=== PATIENT | male | born 1955 | race Caucasian/White ===

== ENCOUNTER 2018-01-01 04:56 | Outpatient (CLI) | payer MEDICARE ==
[~2018-01-01 04:56] MED LIST: ASPI-611 PO; ATOR20TA66 PO; CHOL10002 PO; DAPA5TAB PO; LANTUS SQ; MULT-1085 PO; PIOG45TA5 PO; RAMI5CAP PO; SITA100T11 PO
== END 2018-01-01 23:59 | disposition home or self-care (01) ==
LOC: DIABETIC 04:56
PROVIDERS: ATTEND Specialist
DX: E11.65 Type 2 diabetes mellitus with hyperglycemia (principal); I10 Essential (primary) hypertension
CPT/HCPCS: G0108

== ENCOUNTER 2019-09-12 10:27 | Emergency (ER) | payer MEDICARE ==
[~2019-09-12] VITALS: Ht 182.9 cm; Wt 101.8 kg
[~2019-09-12 10:27] MED LIST changes: +CHLO25TA22 PO; +DOCU-148 PO; +GLIM2TAB3 PO; +PANT40TA4 PO; -RAMI5CAP PO; +RAMI5CAP65 PO
[2019-09-12 10:40] VITALS: BP 130/76
[2019-09-12] MEDS ORDERED: SEMA0.25 (11:20)
[2019-09-12] MEDS ORDERED: METF500T20 PO (11:21)
== END 2019-09-12 11:54 | disposition home or self-care (01) ==
LOC: ER 10:28
DX: R20.0 Anesthesia of skin (principal); E11.9 Type 2 diabetes mellitus without complications; Z98.890 Other specified postprocedural states; Z79.899 Other long term (current) drug therapy; Z79.82 Long term (current) use of aspirin; Z79.4 Long term (current) use of insulin
CPT/HCPCS: 99281

== ENCOUNTER 2023-05-12 12:15 | Emergency (ER) | payer MEDICARE, OTHER ==
[~2023-05-12] VITALS: Ht 180.3 cm; Wt 128.6 kg
[~2023-05-12 12:15] MED LIST changes: -CHLO25TA22 PO; -CHOL10002 PO; -DAPA5TAB PO; -DOCU-148 PO; -GLIM2TAB3 PO; +GLIM2TAB6 PO; +METF-900 PO; -PANT40TA4 PO; +SEMA0.25; -SITA100T11 PO
[2023-05-12 12:23] VITALS: BP 128/58; PULSE 54; RESP 18; TEMP 97.5; O2SAT 99
== END 2023-05-12 14:26 | disposition home or self-care (01) ==
LOC: ER 12:15
DX: T85.9XXA Unspecified complication of internal prosthetic device, implant and graft, initial encounter (principal); E11.9 Type 2 diabetes mellitus without complications; M79.601 Pain in right arm; Z88.8 Allergy status to other drugs, medicaments and biological substances; Z79.82 Long term (current) use of aspirin; Z79.899 Other long term (current) drug therapy; Z79.84 Long term (current) use of oral hypoglycemic drugs
CPT/HCPCS: 73060; 99283

== ENCOUNTER 2025-04-10 17:55 | Inpatient (IN) | payer MEDICARE, OTHER ==
[~2025-04-10] VITALS: Ht 182.9 cm; Wt 106.2 kg
[~2025-04-10 17:55] MED LIST changes: -RAMI5CAP65 PO; +RAMI5CAP71 PO
--- NOTE | 2025-04-10 19:46 | ELECTROCARDIOGRAPH REPORT ---
[facility] Test Date: 2025-04-10 Test Time: 19:43:30 Pat Name: LINWOOD HARDIN Department: [facility] Patient ID: [facility]-[id number] Room: Gender: M Enterprise Systems Architect: : 1955 Requested By: ALLI CORDOVA Order Number: [id number] Reading MD: Dr. Jesse Roman Measurements Intervals [place] Rate: 113 P: -28 MO: 154 QRS: -61 QRSD: 114 T: 109 QT: 333 QTc: 457 Interpretive Statements Sinus tachycardia Atrial premature complex Abnormal R-wave progression, late transition LVH with IVCD, LAD and secondary repol abnrm Minimal ST elevation, lateral leads Electronically Signed On 04-10-2025 21:39:[address] Jesse Roman Please click the below link to view image of tracing.
[2025-04-10] MEDS: ondansetron 4mg rapidly disintigrating tab PO ONE (20:11)
[2025-04-10] MEDS: normal saline 1000ml 1,000 ML IV ONE (21:39)
[2025-04-10] MEDS: ondansetron/PF 4mg/2ml inj IV ONE (21:39)
[2025-04-10 21:42] LABS: ETHANOL < 10 MG/DL (<10)
[2025-04-10 23:44] LABS: MEAN PLATELET VOLUME 8.8 FL (7.4-10.4); RED CELL DISTRIBUTION WIDTH 14.8 % (11.5-14.5)
--- NOTE | 2025-04-10 23:45 | Physician Documentation ---
History of Present Illness Chief Complaint: Vomiting Stated Complaint: "STOMACH PAIN" Time Seen by MD: 23:30 OK to notify your PCP?: Yes Primary Medical Doctor: DR. FREDERICK Source: patient, RN/MD, RN notes reviewed, old records Mode of Arrival: POV Exam Limitations: no limitations HPI 69 year old male presents to the emergency room for complaints of abdominal pain that has been present for two days. He states that his pain is constant and is present in all quadrants of his abdomen. He states that he cannot keep food down or drink liquids due to pain. He denies any diarrhea or abdominal surgeries. Medication Reconciliation Allergies: Coded Allergies: nabumetone (Verified Allergy, Unknown, 04/10/25) pravastatin sodium (Verified Allergy, Unknown, 04/10/25) Scheduled Aspirin (Aspir 81), 1 TAB PO DAILY, (Reported) Atorvastatin Calcium (Atorvastatin Calcium), 1 TAB PO HS, (Reported) Glimepiride (Glimepiride), 1 TAB PO DAILY, (Reported) Insulin Glargine,Hum.rec.anlog* (Lantus*), 36 UNITS SQ HS, (Reported) Metformin Hcl* (Metformin ER*), 4 TAB PO HS, (Reported) Pioglitazone HCl (Actos), 1 TAB PO DAILY, (Reported) Ramipril* (Altace*), 1 CAP PO HS, (Reported) Miscellaneous Medications Multivitamin (Multi Vitamin Daily), 1 EACH PO, (Reported) Semaglutide (Ozempic), (Reported) Past Medical History Past Medical History: Diabetes Past Surgical History: orthopedic surgeries Alcohol Use: Rarely Drug Use: none Lives In: Home Review of Systems All Other Systems at this time: Reviewed and Negative ROS As stated above in the HPI, otherwise all systems are reviewed and negative. Physical Exam Vital Signs: RN Vital Signs have been reviewed: Yes, Temperature: 97.8, Source: Temporal, Heart Rate: 100, Respiratory Rate: 18, BP: 134/65, Pulse Oximetry: 97, Weight: 106.250 Oxygen Flow Rate: 0 Pulse Oximetry Reflects: adequate oxygenation Physical Exam General: Patient is moaning i pain, he is uncomfortable appearing. The patient is well developed, well nourished, nontoxic appearing. Skin: [place], warm and dry with no rashes. HEENT: Head was normocephalic and atraumatic. Eyes - pupils equal, round, reactive to light and accommodation. Extraocular movements were intact. C onjunctivae were nonicteric. Ears - bilateral tympanic membranes were normal. The mouth and oropharynx were clear with moist mucous membranes. There were no pharyngeal exudates or erythema. Neck: Supple and nontender. There was no jugular venous distention, lymphadenopathy, thyromegaly or masses. Chest: Clear to auscultation bilaterally without wheezes, rales or rhonchi. No accessory muscle use. No dullness to percussion. Heart: Rate regular and rhythmic. S1, S2. No murmurs. Palpation of the chest wall was normal. No rubs or thrills. Abdomen:Tenderness in all abdominal quadrants. Positive bowel sounds. No guarding or rebound. No hepatosplenomegaly or palpable masses. Extremities: No cyanosis, clubbing or edema. The patient moves all extremit ies. Pulses were equal and symmetric. Neurologic: Cranial nerves II-XII were intact. Sensation was intact to light touch throughout. Motor strength was 5/5 in all four extremities. Deep tendon reflexes were intact in both upper and lower extremities. Psychologic: The patient was oriented to person, place and time. The patient demonstrated appropriate judgement and insight. Progress Progress Note 0115: The case was discussed with the hospitalist who was informed on the patients case and kindly agreed to admission. Results/Orders Results/Orders Orders - JESSE ROMAN MD Liver Panel (04/10/25 19:51) Lipase (04/10/25 19:51) Ethanol (04/10/25 19:51) Drug Screen, Urine (04/10/25 19:51) Urinalysis, Cult If Indicated (04/10/25 19:51) Straight Cath For Urine Sample (04/10/25 19:51) Cbc/Diff (04/10/25 23:22) BMP (04/10/25 20:55) Completed Orders - JESSE ROMAN MD Ondansetron Inj. (Zofran 4mg/2ml Vial) (04/10/25 21:35) Normal Saline 1000ml (0.9% Sodium Chlori (04/10/25 21:35) Medications Received in ER Medications (Trade) Dose Ordered Sig/Dwayne Route PRN Reason Start Time Stop Time Status Last Admin Dose Admin (Zofran ODT tablet) 4 mg ONCE ONCE PO 04/10/25 19:40 04/10/25 19:41 DC 04/10/25 20:11 4 MG (Zofran 4mg/2ml vial) 4 mg ONCE ONCE IV 04/10/25 21:35 04/10/25 21:36 DC 04/10/25 21:39 4 MG Sodium Chloride 1,000 ml @ 1,000 mls/hr ONCE ONCE IV 04/10/25 21:35 04/10/25 22:34 DC 04/10/25 21:39 1,000 MLS/HR Vital Signs 04/10/25 04/10/25 04/10/25 04/10/25 18:03 19:48 20:16 20:18 Temp 97.6 97.8 Pulse 97 110 102 105 Resp 16 22 18 18 B/P (MAP) 123/78 148/88 (108) 118/57 (77) 129/67 (87) Pulse Ox 97 97 98 98 O2 Flow Rate 0 0 0 04/10/25 04/10/25 04/10/25 04/10/25 20:56 21:28 22:22 23:30 Pulse 102 100 100 Resp 18 20 18 B/P (MAP) 137/68 (91) 140/68 (92) 134/65 (88) Pulse Ox 98 97 97 Laboratory Tests Test 04/10/25 20:55 CBC Comment Total Bilirubin 1.0 Direct Bilirubin 0.3 Aspartate Amino Transf (AST/SGOT) 13 Alanine Aminotransferase (ALT/SGPT) 27 Alkaline Phosphatase 72 Total Protein 9.3 H Albumin 5.2 H Globulin 4.1 Albumin/Globulin Ratio 1.3 Lipase 39 Chemistry Comments Ethyl Alcohol Level < 10 EKG/XRAY/CT/US/VASC/MRI EKG : Additional Comment [facility] Test Date: 2025-04-10 Test Time: 19:43:30 Pat Name: LINWOOD HARDIN Department: [facility]- Patient ID: [id number] Room: Gender: M News[employer] Intern: : 1955 Requested By: ALLI CORDOVA Order Number: [id number] Reading MD: Dr. Jesse Roman Measurements Intervals [place] Rate: 113 P: -28 [place]: 154 QRS: -61 QRSD: 114 T: 109 QT: 333 QTc: 457 Interpretive Statements Sinus tachycardia Atrial premature complex Abnormal R-wave progression, late transition LVH with IVCD, LAD and secondary repol abnrm Minimal ST elevation, lateral leads Electronically Signed On 04-10-2025 21:39:[address] Jesse Roman Please click the below link to view image of tracing. EKG Date and Time:04/10/251942 Electronically Signed by: JESSE ROMAN MD Date and Time: 04/10/252138 CT : Impression Exam: CT CT ABDOMEN PELVIS History: ABD PAIN Comparison Study: CT ABDOMEN PELVIS on DOS: 04/03/19 Technique: Multidetector spiral CT of the abdomen was performed from lung bases to pubic symphysis. Imaging was performed without IV contrast. Axial, coronal and sagittal multiplanar reformats were obtained from the axial data set by the technologist. Radiation Dose : 1. Abdomen/Pelvis: CTDIvol mGy, DLP mGy*cm. Findings: Evaluation of solid organs is limited due to lack of intravenous contrast use. Lung Bases: No abnormality demonstrated. Liver: Liver is normal in size. No focal lesions noted. Gallbladder and Biliary Tree: Possible punctate calcified gallstone in the gallbladder which otherwise appears unremarkable. No evidence of biliary ductal dilatation. Spleen: No abnormality demonstrated. Pancreas: No abnormality demonstrated. Adrenal Glands: No abnormality demonstrated. Kidneys: No abnormality demonstrated. Bladder: Considerably distended. No abnormality demonstrated. Bowel: Small hiatal hernia. Stomach is considerably distended with fluid but otherwise unremarkable. No abnormally dilated or thick-walled loops of large or small bowel noted. Appendix appears unremarkable. Ascites: Absent Lymphadenopathy: No evidence of lymphadenopathy. Abdominal Wall and Mesentery: Bilateral fat containing inguinal hernias and very small fat containing umbilical hernia. Vasculature: Unremarkable. Pelvic Organs: Unremarkable. Musculoskeletal: No bony lesions or fracture. Bones appear osteopenic. IMPRESSION: No acute abdominal or pelvic findings. Radiation optimization: All CT scans at this facility use at least one of these dose optimization techniques: automated exposure control mA and/or kV adjustment per patient size (includes targeted exams where dose is matched to clinical indication) or iterative reconstruction. Electronically Signed by:OLI WERNER MD Date & Time: 04/11/25 0105 Departure Disposition: 09 ADMITTED INPATIENT Admitted to Inpatient Unit: yes, to hospitalist Impression: Primary Impression: Chronic renal failure Additional Impressions: Abdominal pain Hypercalcemia DKA (diabetic ketoacidosis) Condition: Fair Referrals: NO PRIMARY CARE PROVIDER (PCP) Critical Care Note Total Time (mins): 30 Critical Care Note The very real possibility of a deterioration of this patient's condition required the highest level of my preparedness for sudden, emergent intervention. I provided critical care services, which included medication orders, frequent reevaluations of the patient's condition and response to treatment, ordering and reviewing test results, and discussing the case with various consultants. Excludes time spent performing separately billable procedures. The critical care time associated with the care of the patient was 30. Signature Scribe Signature: Scribed for Jesse Roman MD by Deloris Tompkins . 04/10/25 23:54 Attestation: The note accurately reflects work and decisions made by me.Jesse Roman MD 04/10/25 23:45 JESSE ROMAN MD Apr 10, 2025 23:45 DELORIS EASTMAN Apr 10, 2025 23:54
[2025-04-10 23:55] LABS: CREATININE 2.59 MG/DL (0.60-1.10); eCRCL 30 ML/MIN; eGFR 25 ML/MIN
[2025-04-11] VITALS (8 sets, daily range): BP systolic 110–132; BP diastolic 39–54; PULSE 60–91; RESP 13–19; TEMP 97.6–98.9; O2SAT 96–98
[2025-04-11 00:04] LABS: TOTAL CARBON DIOXIDE 9.9 MMOL/L (24-32)
[2025-04-11] MEDS: normal saline 1000ML IV soln IV ONE (00:08)
[2025-04-11] MEDS: Insulin Reg/NS 100units/100mL 100 ML IV PRN (00:50)
--- NOTE | 2025-04-11 01:07 | RADIOLOGY REPORT ---
Exam: CT CT ABDOMEN PELVIS History: ABD PAIN Comparison Study: CT ABDOMEN PELVIS on DOS: 04/03/19 Technique: Multidetector spiral CT of the abdomen was performed from lung bases to pubic symphysis. Imaging was performed without IV contrast. Axial, coronal and sagittal multiplanar reformats were ob tained from the axial data set by the technologist. Radiation Dose : 1. Abdomen/Pelvis: CTDIvol mGy, DLP mGy*cm. Findings: Evaluation of solid organs is limited due to lack of intravenous contrast use. Lung Bases: No abnormality demonstrated. Liver: Liver is normal in size. No focal lesions noted. Gallbladder and Biliary Tree: Possible punctate calcified gallstone in the gallbladder which otherwi se appears unremarkable. No evidence of biliary ductal dilatation. Spleen: No abnormality demonstrated. Pancreas: No abnormality demonstrated. Adrenal Glands: No abnormality demonstrated. Kidneys: No abnormality demonstrated. Bladder: Considerably distended. No abnormality demonstrated. Bowel: Small hiatal hernia. Stomach is considerably distended with fluid but otherwise unremarkable. No abnormally dilated or thick-walled loops of large or small bowel noted. Appendix appears unremark able. Ascites: Absent Lymphadenopathy: No evidence of lymphadenopathy. Abdominal Wall and Mesentery: Bilateral fat containing inguinal hernias and very small fat containin g umbilical hernia. Vasculature: Unremarkable. Pelvic Organs: Unremarkable. Musculoskeletal: No bony lesions or fracture. Bones appear osteopenic. IMPRESSION: No acute abdominal or pelvic findings. Radiation optimization: All CT scans at this facility use at least one of these dose optimization jaylin hniques: automated exposure control mA and/or kV adjustment per patient size (includes targeted exam s where dose is matched to clinical indication) or iterative reconstruction.
[2025-04-11] MEDS: sodium bicarbonate 1meq/ml inj 150 ML in sodium chloride 0.45% 1,000 ML IV SCH (01:40)
[2025-04-11 02:34] LABS: LEUKOCYTE ESTERASE ,URINE NEGATIVE (Neg); NITRITES, URINE NEGATIVE (Neg); OCCULT BLOOD,URINE NEGATIVE (Neg)
[2025-04-11 02:41] LABS: UA COLLECTION TYPE CLN CATCH MIDSTREAM
[2025-04-11 02:43] LABS: SQUAMOUS EPITHELIAL CELL,UR FEW /LPF (FEW)
[2025-04-11 02:49] LABS: URINE AMPHETAMINE SCREEN NEGATIVE (Neg); URINE BARBITUATE SCREEN NEGATIVE (Neg); URINE BENZODIAZEPINES SCREEN NEGATIVE (Neg); URINE CANNABINOID SCREEN NEGATIVE (Neg); URINE COCAINE SCREEN NEGATIVE (Neg); URINE METHADONE SCREEN NEGATIVE (Neg); URINE OPIATE SCREEN NEGATIVE (Neg); URINE PHENCYCLIDINE SCREEN NEGATIVE (Neg)
[2025-04-11] MEDS ORDERED: ringers solution, lacted 1,000 ML IV SCH ×2 (03:40)
[2025-04-11] MEDS ORDERED: dextrose 50%-water 50ml dispensing syringe IV PRN (03:40)
[2025-04-11] MEDS ORDERED: sodium phosphate inj. 30 MMOL in dextrose 5%-water 250 ML IV PRN (03:40)
[2025-04-11] MEDS ORDERED: magnesium sulf-water 2g/50mL 50 ML IV PRN ×2 (03:40→04:05)
[2025-04-11] MEDS ORDERED: sodium phosphate inj. 15 MMOL in dextrose 5%-water 250 ML IV PRN (03:40)
[2025-04-11] MEDS ORDERED: potassium Cl 40MEQ/270ML bag 270 ML IV PRN (03:40)
[2025-04-11] MEDS ORDERED: magnesium Cl slow-release 64mg tablet PO PRN (04:05)
[2025-04-11] MEDS ORDERED: magnesium sulf-water 4G/100mL 100 ML IV PRN (04:05)
[2025-04-11] MEDS ORDERED: potassium Cl 40MEQ/1/2NS 520ml 520 ML IV PRN (04:05)
[2025-04-11] MEDS ORDERED: potassium Cl 20 mEq SR tablet PO PRN ×2 (04:05)
[2025-04-11] MEDS: potassium Cl 40MEQ/1/2NS 520ml 520 ML IV PRN (04:34)
[2025-04-11 04:48] LABS: PHOSPHORUS 3.8 MG/DL (2.3-4.5)
[2025-04-11] MEDS: ondansetron/PF 4mg/2ml inj IV PRN (04:51)
[2025-04-11] MEDS: potassium Cl 40MEQ/1/2NS 520ml 520 ML IV ONE (04:52)
[2025-04-11 05:19] LABS: ABG BASE EXCESS -1.5 mmol/L (-2.0-3.0); ABG HCO3 19.9 mmol/L (21.0-28.0); ABG OXYGEN SATURATION 98.1 % (94.0-98.0); ABG PCO2 (T) 26.4 mmHg (35.0-48.0); ABG PH (T) 7.497 (7.350-7.450); ABG PO2 (T) 100.4 mmHg (83.0-108.0); ALLEN'S TEST POSITIVE; FCOHb 0.5 % (0.5-1.5); FHHb 1.9 % (0.0-5.0); FIO2 21.0 mmHg/%; FMetHb 0.3 % (0.0-1.5); FO2Hb 97.3 % (94.0-98.0); MODE ROOM AIR; PATIENT TEMPERATURE 37.6; TOTAL HEMOGLOBIN 14.9 G/dl (13.5-17.5)
--- NOTE | 2025-04-11 05:34 | HISTORY AND PHYSICAL-Residence ---
History & Physical Providers to CC Resident Creating Document: LUDIN BRIONES, RES CC: GUNNER SHERMAN MD ~ History of Present Illness Primary Medical Doctor: DR. FREDERICK Reason for Admit\Complaint: Abdominal pain, nausea and vomitings History of Present Illness A 69 yr-old male with past medical history of diabetes mellitus type 2 (insulin dependent) presented to the ED with abdominal pain since present in the umbilical region, sharp in character, 10/10 in severity, with no radiation. No aggravating or relieving factors patient endorses nausea and vomitings. Patient states that he had multiple episodes of vomitings which later turned out to be bilious. Patient has lost about 15 LV is in 1.5 days. Patient denies loose stools, burning micturition. Patient also endorses that he has not taken insulin yesterday. Allergies: Coded Allergies: nabumetone (Verified Allergy, Unknown, 04/10/25) pravastatin sodium (Verified Allergy, Unknown, 04/10/25) Home Medications Home Medications Active Reported Metformin ER* (Metformin HCl) 500 Mg Tab.sr.24h 4 Tab PO HS Ozempic (Semaglutide) 0.25 Mg/0.2 Ml Pen.injctr Glimepiride 2 Mg Tablet 1 Tab PO DAILY 30 Days Lantus* (Insulin Glargine) 100 Unit/1 Ml Vial 36 Units SQ HS Atorvastatin Calcium 20 Mg Tablet 1 Tab PO HS Multi Vitamin Daily (Multivitamin) 1 Each Tablet 1 Each PO Aspir 81 (Aspirin) 81 Mg Tablet.dr 1 Tab PO DAILY Altace* (Ramipril) 5 Mg Capsule 1 Cap PO HS Actos (Pioglitazone HCl) 45 Mg Tablet 1 Tab PO DAILY Past Medical History Past Medical History Diabetes mellitus type 2 Sleep apnea (noncompliant with CPAP) Past Surgical History Surgical History Comment Left knee repair Past Social History Social History Comment Does not smoke cigarettes, alcohol, marijuana or illicit drugs PCP: Sabino rojas Lives at home with family Alcohol Use: Rarely Drug Use: None Lives In: Home ROS ROS All other systems reviewed in full and negative except for the pertinent positives mentioned in the HPI Exam Vitals: Vital Signs Date Time Temp Pulse Resp B/P (MAP) Pulse Ox O2 Delivery O2 Flow Rate FiO2 04/11/25 03:50 96 04/11/25 01:31 18 128/80 (96) 98 04/10/25 20:18 0 04/10/25 19:48 97.8 General: General: Morbidly obese male, Alert, awake, oriented, not in acute distress HEENT: PERRLA, no icterus, pallor, lymphadenopathy, carotid bruit Respiratory system: Bilateral vesicular breath sounds heard, no adventitious breath sounds CVS: S1-S2 heard, no murmurs/rubs/gallop GI: Tenderness in the umbilical region, Soft, no organomegaly, no guarding/rigidity, bowel sounds present Neuro: No focal neurological deficits present Extremities: No edema cyanosis clubbing/deformities Skin: Warm and dry Diagnostic Data Last Recorded Lab Results: 04/10/25205404/11/25 041 Advance Care Planning Advanced Care plannin - 30 Minutes (I spent 20 minutes discussing various resuscitative measures and the patient decided to be full code) Additional Plan Assessment: A 69-year-old male with past medical history of DM type 2, insulin dependent presented to the ED in view of abdominal pain nausea and vomitings. In the ED, patient was found to have elevated blood sugars and was with metabolic acidosis s. Patient is found to have positive ketones in the urine. Plan: DKA Metabolic acidosis Lactic acidosis A1c: 6.2, controlled Unknown reason for DKA UA positive for ketones Elevated blood sugars, U tox and ethyl alcohol negative Started on IV bicarb in half-normal saline DKA protocol Continue to monitor anion gap Start D5 half-normal saline with a blood glucose falls below 200 ABG results have been skewed as ABG was taken long hours after treatment has been initiated Switch to hyper/hypoglycemia protocol once anion gap closes Prerenal DENIZ probably secondary to renal tubular stasis Elevated BUN and creatinine Continue IV fluids Continue to monitor BMP Leukocytosis CT abdomen pelvis: Normal Follow up with procalcitonin Did not start on any antibiotics, re-evaluate in a.m. Hypercalcemia Most likely secondary to hemoconcentration Continue IV fluid resuscitation continue to monitor HTN Continue ramipril 5 mg HLD Follow up with lipid panel Continue atorvastatin 20 mg once daily Patient is on aspirin at home, unknown past medical history, re-evaluate Code status: Full code Diet: NPO Anticoagulation: Aspirin Disposition: Admit to PCU, continue to monitor blood sugars Ludin Briones MD Internal Medicine, PGY 2 Pt was seen and discussed with the resident team pt in DKA Improved Taking iv insulin at this time ]He is awake and alert and conversant Will continue insulin drip for Gap closure and acidosis resolution Date of Service: Apr 11, 2025 Billing Provider: GUNNER SHERMAN MD, SIVA, RES Apr 11, 2025 05:33 GUNNER SHERMAN MD Apr 11, 2025 06:35
[2025-04-11 05:36] LABS: CREATININE 2.10 MG/DL (0.60-1.10); TOTAL CARBON DIOXIDE 18.0 MMOL/L (24-32); eCRCL 36 ML/MIN; eGFR 31 ML/MIN
[2025-04-11] MEDS: HYDROcodone/acetaminophen 5mg/325mg tablet PO PRN (06:58)
[2025-04-11] MEDS: Insulin Reg/NS 100units/100mL 100 ML IV SCH (07:53)
[2025-04-11] MEDS ORDERED: non-formulary drug (Aspirin (Aspir 81) 1 TAB) PO SCH (08:00)
[2025-04-11] MEDS: K and/or MAG REPLACEMENT MC SCH (08:00)
[2025-04-11] MEDS: docusate sod 100mg capsule PO SCH (08:16)
[2025-04-11] MEDS: heparin, porcine 5000 units/ml vial SQ SCH (08:16)
[2025-04-11] MEDS: aspirin 81mg, enteric-coated 1 TAB TABLET.DR PO SCH (08:16)
[2025-04-11 08:49] LABS: MEAN PLATELET VOLUME 8.3 FL (7.4-10.4); RED CELL DISTRIBUTION WIDTH 14.2 % (11.5-14.5)
[2025-04-11 09:03] LABS: CREATININE 1.96 MG/DL (0.60-1.10); TOTAL CARBON DIOXIDE 24.2 MMOL/L (24-32); eCRCL 39 ML/MIN; eGFR 34 ML/MIN
[2025-04-11] MEDS: insulin glargine (Lantus) pen - multi-dose SQ ONE (10:27)
[2025-04-11] MEDS: CefTRIAXone/D5W-Rocephin 1gm 50 ML IV SCH (10:28)
[2025-04-11] MEDS: metoclopramide 5 mg/ml inj IV PRN (12:38)
[2025-04-11] MEDS: INSULIN LISPRO 100 UNIT/ML INSULN.PEN MULTI-DOSE SQ SCH (12:40)
[2025-04-11] MEDS: HYDROmorphone inj. 0.5 MG/0.5 ML DISP.SYRIN IV PRN (12:58)
[2025-04-11 13:13] LABS: CREATININE 1.61 MG/DL (0.60-1.10); PHOSPHORUS 3.4 MG/DL (2.3-4.5); TOTAL CARBON DIOXIDE 24.5 MMOL/L (24-32); eCRCL 48 ML/MIN; eGFR 43 ML/MIN
[2025-04-11] MEDS ORDERED: metoclopramide 5 mg/ml inj IV SCH (14:00)
--- NOTE | 2025-04-11 14:41 | PROGRESS NOTE- Residence ---
Progress Note - Resident Providers to CC Resident Creating Document: ERIC BENEDICT, AMADEO ~ Antibiotic Timeout Antibiotic Ordered?: No Subjective Patient was seen and examined at bedside. He still reports abdominal pain, unable to pass gas and has persistent hiccups. Reglan 10 mg IV three times daily started. Nonetheless his A1C is 6.2, patient was presented with DKA. HCO3 is 24.5, Anion Gap is closed, Insulin drip discontinued. Fluid switched to half NS. He is compliant with his insulin; adminiters 18-20 units of Lantus at night. If remains stable, he can be DC'd home tomorrow. Objective Vital Signs Date Time Temp Pulse Resp B/P (MAP) Pulse Ox O2 Delivery O2 Flow Rate FiO2 04/11/25 12:58 15 04/11/25 11:00 97.9 83 116/49 (71) 98 Room Air 04/11/25 03:30 0.0 General: Obese male, Awake and Alert, no acute distress. HEENT: Conjunctiva pink, Sclera clear, Mucus Membranes moist. Neck: Supple without masses and tenderness. Resp: Unlabored. Lungs clear to auscultation bilaterally. Heart: Regular Rate and rhythm, normal S1 and S2 without murmur, rub or gallop. Abdomen: mild-moderate periumblical tenderness. bowel sounds sluggish. Extremities: No cyanosis,clubbing or edema. Skin: Warm and Dry. Result Diagram: 04/11/25 0730 04/11/25 1223 Advance Care Planning Advanced Care plannin - 30 Minutes Assessment Assessment A 69-year-old male with past medical history of DM type 2, insulin dependent presented to the ED in view of abdominal pain nausea and vomitings. In the ED, patient was found to have elevated blood sugars and was with metabolic acidosis s. Patient is found to have positive ketones in the urine. Nonetheless his A1C is 6.2, patient was presented with DKA. HCO3 is 24.5, Anion Gap is closed, Insulin drip discontinued. Fluid switched to half NS. He is compliant with his insulin; adminiters 18-20 units of Lantus at night. Plan Plan Diabetic ketoacidosis/DKA, Resolved High anion gap Metabolic acidosis, Resolved Lactic acidosis, Resolved A1c: 6.2, controlled Unknown reason for DKA UA positive for ketones Elevated blood sugars, U tox and ethyl alcohol negative Started on IV bicarb in half-normal saline DKA protocol Continue to monitor anion gap Start D5 half-normal saline with a blood glucose falls below 200 ABG results have been skewed as ABG was taken long hours after treatment has been initiated Switch to hyper/hypoglycemia protocol once anion gap closes April 11, 2025: DKA resolved, AG closed. Insulin drip DC'd, Hyperglycemia/hypoglycemia protocol in place. HCO3 drip DC'd, half NS 100 ml/hr Able to tolerate oral intake. Still c/o abdominal pain, despite negative CT. Monitor closely. Prerenal DENIZ probably secondary to renal tubular stasis - improving creatinine trended down; from 2.59 to 1.61 Continue IV fluids Continue to monitor BMP Leukocytosis CT abdomen pelvis: Normal Follow up with procalcitonin Did not start on any antibiotics, re-evaluate in a.m. Hypercalcemia Most likely secondary to hemoconcentration Continue IV fluid resuscitation continue to monitor HTN Continue ramipril 5 mg HLD Follow up with lipid panel Continue atorvastatin 20 mg once daily Code Status: Full Code DVT prophylaxis: Heparin SQ Eric Benedict Internal Medicine Resident Date of Service: Apr 11, 2025 Billing Provider: GRIFFIN GAYTAN MD,ERIC, RES Apr 11, 2025 14:41
[2025-04-11] MEDS: mag hydrox/Alum hydrox/simeth 30ml oral suspension PO PRN (19:17)
[2025-04-12] VITALS (8 sets, daily range): BP systolic 108–141; BP diastolic 43–59; PULSE 56–67; RESP 13–18; TEMP 97.7–99; O2SAT 96–98
[2025-04-12 06:13] LABS: MEAN PLATELET VOLUME 8.2 FL (7.4-10.4); RED CELL DISTRIBUTION WIDTH 14.1 % (11.5-14.5)
[2025-04-12 06:49] LABS: CHOL/HDL RATIO 1.8 (0.00-4.99); CREATININE 1.08 MG/DL (0.60-1.10); LDL CHOLESTEROL 27 MG/DL (50-100); TOTAL CARBON DIOXIDE 24.2 MMOL/L (24-32); eCRCL 71 ML/MIN; eGFR 68 ML/MIN
[2025-04-12] MEDS: magnesium hydroxide 30ml (MOM) UD suspension PO PRN (07:32)
[2025-04-12] MEDS: metoclopramide 5 mg/ml inj IV SCH (13:47)
--- NOTE | 2025-04-12 15:19 | PROGRESS NOTE- Residence ---
Progress Note - Resident Providers to CC Resident Creating Document: ESSIE LEONE RES ~ Antibiotic Timeout Antibiotic Ordered?: No Subjective Patient was seen and examined at bedside. Continues to have abdominal pain and persistent hiccups. He did pass bowel gastritis. Thioridazone ordered for hiccups. AFib abdominal pain does not improve, we will order CT with oral and IV contrast. Objective Vital Signs Date Time Temp Pulse Resp B/P (MAP) Pulse Ox O2 Delivery O2 Flow Rate FiO2 04/12/25 14:47 19 04/12/25 11:00 97.9 62 117/48 (71) 96 Room Air 04/11/25 03:30 0.0 Result Diagram: 04/12/2539 04/12/25 0539 General: Obese male, Awake and Alert, no acute distress. HEENT: Conjunctiva pink, Sclera clear, Mucus Membranes moist. Neck: Supple without masses and tenderness. Resp: Unlabored. Lungs clear to auscultation bilaterally. Heart: Regular Rate and rhythm, normal S1 and S2 without murmur, rub or gallop. Abdomen: mild-moderate periumblical tenderness. bowel sounds sluggish. Extremities: No cyanosis,clubbing or edema. Skin: Warm and Dry. Assessment Assessment A 69-year-old male with past medical history of DM type 2, insulin dependent presented to the ED in view of abdominal pain nausea and vomitings. Patient was found to be in DKA, now resolved, A1c 6.2, on half NS in Lantus 15 units. Has continuous abdominal pain with hiccups, unknown cause. CT abdomen did not show any significant findings. Started chlorpromazine 25 mg t.i.d. for hiccups and Protonix [address] with oral and IV contrast. Plan Plan Diabetic ketoacidosis/DKA, Resolved High anion gap Metabolic acidosis, Resolved Lactic acidosis, Resolved A1c: 6.2, controlled Unknown reason for DKA UA positive for ketones Elevated blood sugars, U tox and ethyl alcohol negative Started on IV bicarb in half-normal saline DKA protocol Continue to monitor anion gap Start D5 half-normal saline with a blood glucose falls below 200 ABG results have been skewed as ABG was taken long hours after treatment has been initiated April 11, 2025: DKA resolved, AG closed. Insulin drip DC'd, Hyperglycemia/hypoglycemia protocol in place. HCO3 drip DC'd, half NS 100 ml/hr Able to tolerate oral intake. Still c/o abdominal pain, despite negative CT. Monitor closely. April 12, 2025 Glucose in the normal range Continued half NS 100 mL/hour Hyperglycemia hypoglycemic protocol in place Unresolving abdominal pain Also has a associated hiccups Cause unknown No improvement with Reglan. Thyioridazone 25 mg t.i.d. ordered Also started pantoprazole 40 mg IV, as patient has a history of GERD CT abdomen did not show significant findings Plan is to order CT abdomen with the oral and IV contrast Prerenal DENIZ probably secondary to renal tubular stasis - improving creatinine trended down; from 2.59 to 1.61 Continue IV fluids Continue to monitor BMP Leukocytosis CT abdomen pelvis: Normal Follow up with procalcitonin Did not start on any antibiotics, re-evaluate in a.m. 04/12/2025-WBC trending down Hypercalcemia-resolved Most likely secondary to hemoconcentration Continue IV fluid resuscitation continue to monitor HTN Continue ramipril 5 mg HLD Follow up with lipid panel Continue atorvastatin 20 mg once daily Code Status: Full Code DVT prophylaxis: Heparin SQ [facility] Resident Date of Service: Apr 12, 2025 Billing Provider: GRIFFIN GAYTAN MD Common Visit Codes: [id number] INP/OBS CARE(HIGH) ESSIE LEONE, RES Apr 12, 2025 15:19 GRIFFIN GAYTAN MD Apr 12, 2025 21:43
--- NOTE | 2025-04-12 18:57 | CARDIOLOGY REPORT ---
APPROVED REPORT EXAM: Comprehensive 2D, Doppler, and color-flow Echocardiogram. Patient Location: [address] Blood Pressure: 120/54 mmHg Heart Rate: 62 bpm Rhythm: Sinus with frequent PAC's Indications Coronary Artery Disease Stomach Pain Diabetes Melltius II Drop Wire Aliner: None Previous echo: None 2D Dimensions RVDd 4.0 cm LA Diam4.9 cm RA Minor4.6 cmLVOT Diameter 2.27 (1.8-2.4cm) Ao Asc Diam.3.81 cmCO 8.9 L/min M-Mode Dimensions RVDd 3.62 (2.1-3.2cm) IVSd 1.23 (0.7-1.1cm) LVDd 5.76 (4.0-5.6cm) Aortic Root 3.80 (2.2-3.7cm) PWd 1.26 (0.7-1.1cm) Aortic Cusp Exc 2.11 (1.5-2.0cm) IVSs 1.55 cm LVDs 4.13 (2.0-3.8cm) FS (%) 30 % PWs 1.72 cm ESV(Teich) 68.8 ml LVEF(%) 57 (>50%) Aortic Valve AoV Peak Arturo. 190.9 cm/s AoV VTI 37.4 cm AO Peak GR. 14.6 mmHg AO Mean GR. 8 mmHg LVOT VTI 24.96 cm LVOT Peak Arturo. 124.5 cm/s NANCY(VTI)/BSA 2.69 cm2/m2 NANCY (VTI) 2.69 cm2 Mitral Valve MV E Velocity 99.4 cm/s MV Peak Gr. 6 mmHg MV DECEL TIME 244 ms MV A Velocity 69.8 cm/s MV Mean Gr. 2 mmHg MV PHT 72 ms E/A Ratio 1.4 MVA (PHT) 3.06 cm2 MV XOdb225.1 cm/sMV VMean58.4 cm/s MVA VTI3.10 cm2MV VTI32.5 cm Tricuspid Valve TR P. Velocity 239 cm/s RAP ESTIMATE 10 mmHg TR Peak Gr. 23 mmHg RVSP 33 mmHg LEFT VENTRICLE The LV is dilated in size with mildly reduced function. Apical septum and septal segments appear hypo kinetic. Mild concentric hypertrophy. Overall LVEF is 50-55%. RIGHT VENTRICLE Right ventricle is moderately dilated with reduced function. Estimated PA systolic pressure is 33 mmH g. ATRIA Left atrium is moderately dilated. Right atrium appears to be moderately dilated. AORTIC VALVE Trileaflet AV appears sclerotic without stenosis. Trace insufficiency. MITRAL VALVE Mild Moderate MV annular calcification without stenosis. Mild regurgitation. TRICUSPID VALVE TV appears structurally normal with mild regurgitation. PULMONIC VALVE Grossly normal PV without stenosis, physiologic insufficiency. GREAT VESSELS Aortic root is dilated at 3.8 cm. Ascending aorta is dilated at 3.81 cm. IVC is not well v isualized. PERICARDIUM Normal pericardium. Anterior fat pad is present. No pericardial effusion seen. Other Information Study Quality: Fair. Patient has had hiccups for the last 24 hours. Conclusion The LV is dilated in size with mildly reduced function. Apical septum and septal segments appear hypo kinetic. Mild concentric hypertrophy. Overall LVEF is 50-55%. Right ventricle is moderately dilated with reduced function. Estimated PA systolic pressure is 33 mmH g. Left atrium is moderately dilated. Right atrium appears to be moderately dilated. Trileaflet AV appears sclerotic without stenosis. Trace insufficiency. Mild Moderate MV annular calcification without stenosis. Mild regurgitation. TV appears structurally normal with mild regurgitation. Aortic root is dilated at 3.8 cm. Ascending aorta is dilated at 3.81 cm. Normal pericardium. Anterior fat pad is present. No pericardial effusion seen.
[2025-04-12] MEDS: insulin glargine (Lantus) pen - multi-dose SQ SCH (21:48)
[2025-04-13 02:00] VITALS: BP 130/51; PULSE 63; RESP 20; TEMP 98.5; O2SAT 96
[2025-04-13 06:11] LABS: MEAN PLATELET VOLUME 8.2 FL (7.4-10.4); RED CELL DISTRIBUTION WIDTH 14.0 % (11.5-14.5)
[2025-04-13 06:22] LABS: CREATININE 0.84 MG/DL (0.60-1.10); TOTAL CARBON DIOXIDE 25.9 MMOL/L (24-32); eCRCL 91 ML/MIN; eGFR > 90 ML/MIN
[2025-04-13 07:00] VITALS: BP 121/51; PULSE 57; RESP 20; TEMP 98.5; O2SAT 94
[2025-04-13 08:17] VITALS: RESP 18
[2025-04-13] MEDS ORDERED: magnesium citrate 296ml oral solution PO ONE (10:20)
[2025-04-13] MEDS ORDERED: PANT40SU2 PO (10:41)
[2025-04-13] MEDS ORDERED: LANTUS SQ (10:41)
[2025-04-13] MEDS ORDERED: METO5TAB85 PO (10:41)
[2025-04-13] MEDS ORDERED: HYDR-3973 PO (16:09)
--- NOTE | 2025-04-13 16:43 | DISCHARGE SUMMARY-Residence ---
Discharge Summary Providers to CC Resident Creating Document: SIERRA ALASELIAN, RES ~ Discharge Summary Admission Diagnosis: DKA Hospital Course DATE OF ADMISSION: 04/11/2025 DATE OF DISCHARGE: 04/13/2025 Discharge Diagnosis\Comment: Diabetic ketoacidosis/DKA-Resolved High anion gap Metabolic acidosis-Resolved Lactic acidosis, Resolved Abdominal pain-result Prerenal DENIZ probably secondary to renal tubular stasis - improving Leukocytosis Hypercalcemia-resolved HTN HLD Operations\Procedures: None Consultants: None Complications: None Condition on DC: Stable New Medications: Hydrocodone Bit/Acetaminophen (Hydrocodone-Apap 10-325 Tablet) 10mg/325mg Tablet 1 TAB PO QID PRN PRN for pain for 5 Days, #20 TAB Metoclopramide HCl (Reglan) 5 Mg Tablet 1 TAB PO Q6H PRN for nausea/vomiting for 7 Days, #28 TAB 0 Refills before food Pantoprazole Sodium (Protonix) 40 Mg Suspdr.pkt 1 PKT PO DAILY for 30 Days, #30 PKT 0 Refills Changed Medications: Insulin Glargine,Hum.rec.anlog* (Lantus*) 100 Unit/1 Ml Vial 12 UNITS SQ HS for 30 Days, #1 VIAL (Changed from: 36 UNITS) administer 12 units at bedtime Continued Medications: Aspirin (Aspir 81) 81 Mg Tablet.dr 1 TAB PO DAILY, TAB Atorvastatin Calcium (Atorvastatin Calcium) 20 Mg Tablet 1 TAB PO HS, TAB Glimepiride (Glimepiride) 2 Mg Tablet 1 TAB PO DAILY for 30 Days, #30 TAB Metformin Hcl* (Metformin ER*) 500 Mg Tab.sr.24h 4 TAB PO HS, TAB Multivitamin (Multi Vitamin Daily) 1 Each Tablet 1 EACH PO, TAB Pioglitazone HCl (Actos) 45 Mg Tablet 1 TAB PO DAILY, TAB Ramipril* (Altace*) 5 Mg Capsule 1 CAP PO HS, CAP Semaglutide (Ozempic) 0.25 Mg/0.2 Ml Pen.injctr Discharge Summary: HPI: A 69 yr-old male with past medical history of diabetes mellitus type 2 (insulin dependent) presented to the ED with abdominal pain since present in the umbilical region, sharp in character, 10/10 in severity, with no radiation. No aggravating or relieving factors patient endorses nausea and vomitings. Patient states that he had multiple episodes of vomitings which later turned out to be bilious. Patient has lost about 15 LV is in 1.5 days. Patient denies loose stools, burning micturition. Patient also endorses that he has not taken insulin yesterday. Hospital course: 69-year-old male patient came to the hospital with chief complaint of abdominal pain, nausea and vomiting. The patient was admitted with diagnosis of diabetic ketoacidosis. Abdomen/pelvis CT scan was obtained which showed no acute abdominal findings. Regarding his findings in his lab work with metabolic acidosis, lactic acidosis the patient was started on diabetic ketoacidosis protocol based on insulin drip, later on transitioned to hyperglycemi a/hypoglycemia protocol in place based on glargine and sliding scale lispro. The patient glucose levels and metabolic acidosis improved. At the same time the patient was found with the acute kidney injury likely secondary prerenal which improved with IV fluid resuscitation. The patient reported persistent abdominal pain and nausea for which the patient was started on metoclopramide, the patient reported significant improvement of symptoms, on 04/13/2025 the patient reports resolution of symptoms, eager to be discharged home. The patient remained hemodynamically asymptomatic. Physical therapy evaluated the patient, the patient is home independent. The patient will be discharged home. Discharge course: The patient remained hemodynamically stable. The patient will be discharged with the following instructions: Call 911 or come back to the Emergency department if severe nausea, abdominal pain, shortness of breath, chest pain, palpitations, fever is evidenced. Follow up with your primary care physician for 2 weeks. We are reducing your dose on lantus to 12 units at bedtime. Take [place] 10 mg/325 mg every 6 hours as needed for pain. Continue pantoprazole one tablet of 40 mg daily. Continue home medications: Aspirin one tablet of 81 mg daily. Atorvastatin one tablet of 20 mg at bedtime. Glimepiride one tablet of 10 mg daily. Ramipril one tablet of 5 mg daily. Physical exam: General: Well alert, well oriented, not confused, not agitated, not in acute di stress, well cooperated during the physical. HEENT: Conjunctive are pink, sclerae clear, no icterus, pupil is equal in both sides, reactive to light, no ear discharge, no pharyngeal erythema or an edema. Neck: Supple, no JVD, no lymphadenopathy and thyromegaly. Chest: Equal air entry on both lungs, no additional sounds no rhonchi no wheezing at the moment. Cardiovascular: S1-S2 regular sinus rhythm and, regular rate, no gallops, no rubs, no murmurs Abdomen: No visible peristalsis, Bowel sounds present on auscultation, soft, nontender, no guarding, no rigidity Extremities: No obvious deformities, no pitting edema bilaterally, capillary refill intact, peripheral pulsations are intact on both sides Central Nervous System: No focal neurological deficits, no motor or sensory weakness in all 4 extremities, could move all 4 extremities, 2+ deep tendon reflexes, negative Babinski. Musculoskeletal: No joint swelling, deformities, inflammations, and no scoliosis and back tenderness Skin: Warm and dry. Vital Signs Date Time Temp Pulse Resp B/P (MAP) Pulse Ox O2 Delivery O2 Flow Rate FiO2 04/13/25 08:17 18 04/13/25 08:00 Room Air 04/13/25 07:00 98.5 57 121/51 (74) 94 04/11/25 03:30 0.0 Laboratory Tests Test 04/11/25 21:27 04/12/25 00:26 04/12/25 05:39 04/12/25 07:01 Glucometer 123 mg/dl 116 mg/dl 128 mg/dl White Blood Count 14.6 X10'3 Red Blood Count 3.95 X10'6 Hemoglobin 13.1 g/dl Hematocrit 38.2 % Mean Corpuscular Volume 96.6 FL Mean Corpuscular Hemoglobin 33.2 PG Mean Corpuscular Hemoglobin Concent 34.3 g/dL Red Cell Distribution Width 14.1 % Platelet Count 250 X10'3 Mean Platelet Volume 8.2 FL Neutrophils (%) (Auto) 77.6 % Lymphocytes (%) (Auto) 12.7 % Monocytes (%) (Auto) 9.3 % Eosinophils (%) (Auto) 0.1 % Basophils (%) (Auto) 0.3 % Neutrophils # (Auto) 11.3 X10'3 Lymphocytes # (Auto) 1.9 X10'3 Monocytes # (Auto) 1.4 X10'3 Eosinophils # (Auto) 0.0 X10'3 Basophils # (Auto) 0.1 X10'3 CBC Comment Sodium Level 138 MMOL/L Potassium Level 4.0 MMOL/L Chloride Level 103 MMOL/L Carbon Dioxide Level 24.2 MMOL/L Anion Gap 11 Blood Urea Nitrogen 24 MG/DL Creatinine 1.08 MG/DL Estimated GFR/1.73 m2 68 ML/MIN BUN/Creatinine Ratio 22.2 Glucose Level 129 MG/DL Calcium Level 8.3 MG/DL Albumin 3.4 G/DL Triglycerides Level 93 MG/DL Cholesterol Level 92 MG/DL LDL Cholesterol 27 MG/DL HDL Cholesterol 52 MG/DL Cholesterol/HDL Ratio 1.8 Chemistry Comments Test 04/12/25 11:37 04/12/25 17:02 04/12/25 21:43 04/13/25 05:34 Glucometer 129 mg/dl 108 mg/dl 96 mg/dl White Blood Count 7.9 X10'3 Red Blood Count 3.93 X10'6 Hemoglobin 13.2 g/dl Hematocrit 38.1 % Mean Corpuscular Volume 97.1 FL Mean Corpuscular Hemoglobin 33.5 PG Mean Corpuscular Hemoglobin Concent 34.6 g/dL Red Cell Distribution Width 14.0 % Platelet Count 224 X10'3 Mean Platelet Volume 8.2 FL Neutrophils (%) (Auto) 65.1 % Lymphocytes (%) (Auto) 21.9 % Monocytes (%) (Auto) 12.1 % Eosinophils (%) (Auto) 0.6 % Basophils (%) (Auto) 0.3 % Neutrophils # (Auto) 5.2 X10'3 Lymphocytes # (Auto) 1.7 X10'3 Monocytes # (Auto) 1.0 X10'3 Eosinophils # (Auto) 0.0 X10'3 Basophils # (Auto) 0.0 X10'3 CBC Comment Sodium Level 137 MMOL/L Potassium Level 3.6 MMOL/L Chloride Level 103 MMOL/L Carbon Dioxide Level 25.9 MMOL/L Anion Gap 8 Blood Urea Nitrogen 13 MG/DL Creatinine 0.84 MG/DL Estimated GFR/1.73 m2 > 90 ML/MIN BUN/Creatinine Ratio 15.5 Glucose Level 65 MG/DL Calcium Level 8.1 MG/DL Albumin 2.9 G/DL Chemistry Comments Test 04/13/25 08:23 04/13/25 08:51 Glucometer 60 mg/dl 105 mg/dl Imaging: Echocardiogram: The LV is dilated in size with mildly reduced function. Apical septum and septal segments appear hypokinetic. Mild concentric hypertrophy. Overall LVEF is 50-55%. Right ventricle is moderately dilated with reduced function. Estimated PA systolic pressure is 33 mmHg. Left atrium is moderately dilated. Right atrium appears to be moderately dilated. Trileaflet AV appears sclerotic without stenosis. Trace insufficiency. Mild Moderate MV annular calcification without stenosis. Mild regurgitation. TV appears structurally normal with mild regurgitation. Aortic root is dilated at 3.8 cm. Ascending aorta is dilated at 3.81 cm. Normal pericardium. Anterior fat pad is present. No pericardial effusion seen. Abdominal/pelvis CT scan: No acute abdominal or pelvic findings. *Problems/Diagnosis: (1) DKA (diabetic ketoacidosis) Status: Resolved (2) High anion gap metabolic acidosis Status: Resolved (3) Acute renal failure Status: Resolved Total Time Spent on D/C: > 30 Minutes Addendum pt had persistent abd pain and hiccups during his stay that resolved by discharge; possibly attributed to increase in his cialis dose as per pt report after dose increased pt had severe acid reflux Date of Service: Apr 13, 2025 Billing Provider: GRIFFIN GAYTAN MD Common Visit Codes: 00787-OLR/OBS DISCH DAY >30min Problem Qualifiers (1) DKA (diabetic ketoacidosis): Diabetes mellitus type: type 2 ELINA MILES, RES Apr 13, 2025 16:42 GRIFFIN GAYTAN MD Apr 13, 2025 20:33
[2025-04-13] MEDS ORDERED: insulin glargine (Lantus) pen - multi-dose SQ SCH (21:00)
[2025-04-14] MEDS ORDERED: pantoprazole 40mg Tablet.DR PO SCH (07:30)
== END 2025-04-13 12:07 | disposition home or self-care (01) | DRG 637 ==
LOC: ER 17:56 → ED HOLD 04-11 01:34 → EDBEDREQ 04-11 02:23 → PCU 3S 04-11 03:30
PROVIDERS: ADMIT Internal Medicine; ATTEND Internal Medicine
DX: E11.10 Type 2 diabetes mellitus with ketoacidosis without coma (principal); N17.0 Acute kidney failure with tubular necrosis; E83.52 Hypercalcemia; N18.9 Chronic kidney disease, unspecified; G47.30 Sleep apnea, unspecified; E78.5 Hyperlipidemia, unspecified; I12.9 Hypertensive chronic kidney disease with stage 1 through stage 4 chronic kidney disease, or unspecified chronic kidney disease; E11.22 Type 2 diabetes mellitus with diabetic chronic kidney disease; D72.829 Elevated white blood cell count, unspecified; Z88.8 Allergy status to other drugs, medicaments and biological substances; Z79.899 Other long term (current) drug therapy
CPT/HCPCS: 36415; 36600; 74176; 80048; 80053; 80061; 80076; 80305; 80320; 81001; 81003; 82800; 82803; 82948; 83036; 83605; 83690; 83735; 84100; 84145; 85018; 85025; 87040; 87081; 93005; 93306; 96361; 96374; 97161; 97530; 99291; G0378; J0696; J1171; J1644; J1815; J2270; J2405; J2470; J2765; J3480; J3490; J7030; J7040; Q0161